=== PATIENT | female | born 1980 | race Caucasian/White ===

== ENCOUNTER 2018-06-12 13:19 | Emergency (ER) | payer OTHER ==
[~2018-06-12] VITALS: Ht 165.1 cm; Wt 88.1 kg
[2018-06-12 13:23] VITALS: Ht 165.1 cm; Wt 88.1 kg
[2018-06-12 15:04] LABS: CALCIUM 8.5 mg/dL (8.5-10.1); CARBON DIOXIDE 27.6 mmol/L (21-32); CHLORIDE SERUM 106 mmol/L (98-107); CREATININE SERUM 0.7 mg/dL (0.6-1.0); GFR1 > 60 mL/min; GLUCOSE SERUM 114 mg/dL (74-106); POTASSIUM SERUM 3.4 mmol/L (3.5-5.1); SODIUM SERUM 140 mmol/L (136-145)
[2018-06-12 15:08] LABS: ALKALINE PHOSPHATASE 109 U/L (46-116); ALT/SGPT 20 U/L (14-59); AST/SGOT 12 U/L (15-37); BILIRUBIN TOTAL 0.2 mg/dL (0.20-1.00); TOTAL PROTEIN, SERUM 7.4 g/dL (6.4-8.2)
[2018-06-12 15:11] LABS: ALBUMIN 2.9 g/dL (3.4-5.0)
[2018-06-12 16:45] LABS: BASOPHIL % 0.4 % (0-2); PLATELET COUNT 310 x10^3mcL (130-400)
[2018-06-12 16:46] LABS: RED CELL DISTRIBUTION WIDTH 15.6 % (11.5-14.5)
[2018-06-12 18:27] VITALS: BP 130/79
== END 2018-06-12 18:27 | disposition home or self-care (01) ==
LOC: ED 13:19
PROVIDERS: Specialist
DX: K64.9 Unspecified hemorrhoids (principal); R21 Rash and other nonspecific skin eruption
CPT/HCPCS: J7030

== ENCOUNTER 2018-06-16 12:58 | Emergency (ER) | payer OTHER ==
[~2018-06-16] VITALS: Ht 165.1 cm; Wt 89.8 kg
[2018-06-16 13:06] VITALS: Ht 165.1 cm; Wt 89.8 kg
[2018-06-16 13:45] VITALS: BP 114/81
== END 2018-06-16 13:45 | disposition home or self-care (01) ==
LOC: ED 12:58
DX: L25.9 Unspecified contact dermatitis, unspecified cause (principal)

== ENCOUNTER 2018-11-15 19:43 | Emergency (ER) | payer OTHER ==
[~2018-11-15] VITALS: Ht 165.1 cm; Wt 85.7 kg
[2018-11-15 20:26] LABS: BASOPHIL % 1.2 % (0-2); PLATELET COUNT 351 x10^3mcL (130-400); RED CELL DISTRIBUTION WIDTH 16.6 % (11.5-14.5)
[2018-11-15 20:34] LABS: CALCIUM 7.7 mg/dL (8.5-10.1); CARBON DIOXIDE 21.3 mmol/L (21-32); CHLORIDE SERUM 107 mmol/L (98-107); CREATININE SERUM 0.6 mg/dL (0.6-1.0); GFR1 > 60 mL/min; GLUCOSE SERUM 114 mg/dL (74-106); POTASSIUM SERUM 3.5 mmol/L (3.5-5.1); SODIUM SERUM 144 mmol/L (136-145)
[2018-11-15 22:08] VITALS: BP 105/78
== END 2018-11-15 22:08 | disposition home or self-care (01) ==
LOC: ED 19:43
PROVIDERS: Specialist
DX: N12 Tubulo-interstitial nephritis, not specified as acute or chronic (principal)
CPT/HCPCS: 36415; J0696; J1885

== ENCOUNTER 2019-07-22 16:52 | Emergency (ER) | payer OTHER ==
[~2019-07-22] VITALS: Ht 165.1 cm; Wt 96.6 kg
[2019-07-22 17:03] VITALS: Ht 165.1 cm; Wt 96.6 kg
[2019-07-22 18:02] LABS: UA SPECIFIC GRAVITY 1.025 (1.005-1.035); microscopic required? YES; urine erythrocyte 3+ (NEGATIVE)
[2019-07-22 18:17] VITALS: BP 130/71
== END 2019-07-22 18:19 | disposition home or self-care (01) ==
LOC: ED 16:52
PROVIDERS: Emergency Medicine
DX: S39.012A Strain of muscle, fascia and tendon of lower back, initial encounter (principal); X58.XXXA Exposure to other specified factors, initial encounter; Y93.89 Activity, other specified; Y92.89 Other specified places as the place of occurrence of the external cause; Y99.8 Other external cause status
CPT/HCPCS: J1885

== ENCOUNTER 2020-01-10 03:05 | Emergency (ER) | payer OTHER | END 2020-01-10 03:53 | disposition left against medical advice (07) | LOC: ED 03:05 | DX: Z53.21 Procedure and treatment not carried out due to patient leaving prior to being seen by health care provider (principal) ==